=== PATIENT | male | born 1950 | race American Indian/Alaskan Native ===

== ENCOUNTER 2017-03-18 14:11 | Emergency (ER) | payer MEDICARE | END 2017-03-18 14:55 | disposition left against medical advice (07) | LOC: EDSEX → ED 14:11 | DX: Z02.89 Encounter for other administrative examinations (principal); M54.2 Cervicalgia ==

== ENCOUNTER 2017-03-19 07:28 | Emergency (ER) | payer MEDICARE ==
[2017-03-19 07:46] VITALS: TEMP 98.6
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
[2017-03-19] MEDS ORDERED: TraMADol/Apap 37.5/325 mg Tab PO STA (08:33)
--- NOTE | 2017-03-19 08:39 | CT ---
PROCEDURE: CT Cervical Spine without contrast HISTORY: Posterior neck pain COMPARISON: None available. TECHNIQUE: Axial computed tomography images were obtained of the cervical spine without the use of intravenous contrast. Coronal and sagittal reformatted images were created and reviewed. Radiation dose: Total exam DLP = 442 mGy-cm. This CT exam was performed using one or more of the following dose reduction techniques: Automated exposure control, adjustment of the mA and/or kV according to patient size, and/or use of iterative reconstruction technique. FINDINGS: VERTEBRAE: Normal cervical curvature without fracture or spondylolysis is apparent. There is advanced degenerate disease identified at C5-6 with endplate degenerative changes appearing prominent including osteophyte development anteriorly greater than posteriorly. Prominent C1-2 articular degenerate changes are also identified within a prothesis appearing intact nevertheless. DISCS/SPINAL CANAL/NEURAL FORAMINA: Minimal C2-3 disc bulge appreciated with mild degenerative this neural foraminal stenosis identified the left, none at the right. No significant central canal stenosis. At C3-4, limited disc bulge appreciate without central canal or neural foraminal stenosis encountered. Mild ossification of the posterior longitudinal ligament posterior to the C4 vertebral body indents the ventral epidural space/ventral thecal sac. At C4-5, an irregular disc osteophyte complex is seen slightly greater the right than left sides resulting in a borderline right jair canal stenosis but none at the left. No significant neural foraminal stenosis. At C5-6, there is a the large disc osteophyte complex causing [id number] right hemicanal stenosis and [id number]-[id number] bilateral neural foraminal stenosis with contribution from uncovertebral and facet arthropathy bilaterally. At C6-7 and C7-T1, there are no pertinent CT findings other than degenerative facet arthropathy. PARASPINAL SOFT TISSUES: Unremarkable. OTHER FINDINGS: None. IMPRESSION: Multilevel degenerative disc disease, facet arthropathy and variable centered at central canal and neural foraminal stenoses seen worst at C5-6 where there is a large disc osteophyte complex results [id number] right jair canal stenosis and severe bilateral neural foraminal stenosis. Normal curvature without fracture or spondylolisthesis identified.
[2017-03-19 09:42] VITALS: BP 180/88; PULSE 67; RESP 16; O2SAT 98
== END 2017-03-19 09:53 | disposition home or self-care (01) ==
LOC: ED 07:28
DX: S16.1XXA Strain of muscle, fascia and tendon at neck level, initial encounter (principal); X58.XXXA Exposure to other specified factors, initial encounter; Y93.9 Activity, unspecified; Y92.9 Unspecified place or not applicable; M48.02 Spinal stenosis, cervical region
CPT/HCPCS: 72125; 96372; 99284; J1885

== ENCOUNTER 2017-05-03 00:34 | Emergency (ER) | payer MEDICARE ==
[2017-05-03 00:45] VITALS: BP 148/95; PULSE 80; RESP 18; TEMP 97.6; O2SAT 100; BMI 21.7
--- NOTE | 2017-05-03 00:45 | ED PDOC ---
Arrival/HPI - General Historian: Patient <Fitz Anguiano - Last Filed: 05/03/17 01:25> <Josh Madison - Last Filed: 05/03/17 01:29> - General Time Seen by Provider: 05/03/17 00:42 - History of Present Illness Narrative History of Present Illness (Text): 05/03/17 00:43 66 y/o male, pmh including bone cancer/prostate cancer, allergic to penicillin, c/o rt. shoulder and rt. knee pain s/p fall and injured it about 3 weeks ago with no head or neck injury. Aching pain, aggravated by movement, no numbness or tingling, no palpitation, no rash, no night sweat, no other medical or psychological complaints. (Fitz Anguiano) Past Medical History - Provider Review Nursing Documentation Reviewed: Yes - Cardiac Hx Hypertension: Yes - Hematological/Oncological Other/Comment: pt sts he has bone and prostsate CA - Genitourinary/Gynecological Hx Prostate Cancer: Yes - Psychiatric Hx Substance Use: No - Surgical History Other/Comment: B/L knee , right thumb, right collar <Fitz Anguiano - Last Filed: 05/03/17 01:25> Family/Social History - Physician Review Nursing Documentation Reviewed: Yes Family/Social History: Unknown Family HX Smoking Status: Former Smoker Hx Alcohol Use: No Hx Substance Use: No <Fitz Anguiano - Last Filed: 05/03/17 01:25> Allergies/Home Meds <Fitz Anguiano - Last Filed: 05/03/17 01:25> <Josh Madison - Last Filed: 05/03/17 01:29> Allergies/Adverse Reactions: Allergies Penicillins Allergy (Verified 03/19/17 07:53) RASH Review of Systems - Review of Systems Constitutional: absent: Fatigue, Fevers Eyes: absent: Vision Changes ENT: absent: Hearing Changes Respiratory: absent: SOB, Cough Cardiovascular: absent: Chest Pain Gastrointestinal: absent: Abdominal Pain, Nausea, Vomiting Musculoskeletal: Arthralgias. absent: Back Pain, Neck Pain, Joint Swelling, Myalgias Skin: absent: Rash, Pruritis, Skin Lesions Neurological: absent: Headache, Dizziness Psychiatric: absent: Anxiety, Depression, Suicidal Ideation <Fitz Anguiano - Last Filed: 05/03/17 01:25> Physical Exam Pain Distress: Moderate - Systems Exam Head: Present: Atraumatic, Normocephalic Pupils: Present: PERRL Extroacular Muscles: Present: EOMI Conjunctiva: Present: Normal Mouth: Present: Moist Mucous Membranes Neck: Present: Normal Range of Motion Respiratory/Chest: Present: Clear to Auscultation, Good Air Exchange. No: Respiratory Distress, Accessory Muscle Use Cardiovascular: Present: Regular Rate and Rhythm, Normal S1, S2. No: Murmurs Abdomen: Present: Normal Bowel Sounds. No: Tenderness, Distention, Peritoneal Signs Back: Present: Normal Inspection Upper Extremity: Present: Normal Inspection, Other (Rt. shoulder: mild +ttp on the rt. anterior shoulder joint line, no rash, FROM without limitation, sensation intact, motor 5/5, +radial pulse.). No: Cyanosis, Edema Lower Extremity: Present: Normal Inspection, Other (Rt. knee: no tenderness or swelling, negative shahana and lawrence signs, FROM without limitation, sensation intact, motor 5/5. ). No: Edema Neurological: Present: GCS=15, Speech Normal, Motor Func Grossly Intact, Gait Normal, Memory Normal Skin: Present: Warm, Dry, Normal Color. No: Rashes Psychiatric: Present: Alert, Oriented x 3, Normal Insight, Normal Concentration <Fitz Anguiano - Last Filed: 05/03/17 01:25> Medical Decision Making <Fitz Anguiano - Last Filed: 05/03/17 01:25> <Josh Madison - Last Filed: 05/03/17 01:29> ED Course and Treatment: 05/03/17 00:45 -toradol/percocet -xrays. 05/03/17 01:25 -xrays show +degenerative joint changes, no fracture or dislocation -Sling given, kelsey wrap with cane -Discharge home with meloxicam, kelsey wrap, cane, follow up with your own pmd and orthopedic within 2 days, return to the ER for any new or worsening signs or symptoms. (Fitz Anguiano) - RAD Interpretation Radiology Orders: 05/03/17 00:46 KNEE W PATELLA RIGHT 3 VIEW [RAD] Stat SHOULDER RIGHT [RAD] Stat - Medication Orders Current Medication Orders: Discontinued Medications Ketorolac Tromethamine (Toradol) 30 mg IM STAT STA Stop: 05/03/17 00:47 Last Admin: 05/03/17 01:27 Dose: 30 mg Oxycodone/Acetaminophen (Percocet 5/325 Mg Tab) 1 tab PO STAT STA Stop: 05/03/17 00:47 Last Admin: 05/03/17 01:27 Dose: 1 tab - PA / POWER TECHNICIAN / Resident Statement JEOVANY has reviewed & agrees with the documentation as recorded. <Fitz Anguiano - Last Filed: 05/03/17 01:25> - PA / POWER TECHNICIAN / Resident Statement JEOVANY has reviewed & agrees with the documentation as recorded. JEOVANY has examined the patient and agrees with the treatment plan. <Josh Madison - Last Filed: 05/03/17 01:29> Disposition/Present on Arrival - Present on Arrival Any Indicators Present on Arrival: No History of DVT/PE: No History of Uncontrolled Diabetes: No Urinary Catheter: No History of Decub. Ulcer: No History Surgical Site Infection Following: None - Disposition Have Diagnosis and Disposition been Completed?: Yes Disposition Time: :26 Patient Plan: Discharge <Fitz Anguiano - Last Filed: 05/03/17 01:25> <Josh Madison - Last Filed: 05/03/17 01:29> - Disposition Diagnosis: Osteoarthritis, Joint pain Disposition: HOME/ ROUTINE Patient Problems: Current Active Problems Problem Status Onset Joint pain Acute Osteoarthritis Acute Condition: GOOD Additional Instructions: -Discharge home with meloxicam, kelsey wrap, cane, follow up with your own pmd and orthopedic within 2 days, return to the ER for any new or worsening signs or symptoms. Prescriptions: Meloxicam 15 mg PO DAILY PRN #14 tablet PRN Reason: Other Referrals: Dorene Giraldo, [Primary Care Provider] - Follow up with primary Saad Juárez III, MD [Medical Doctor] - Follow up with primary Forms: WORK NOTE
[2017-05-03] MEDS ORDERED: Oxycodone/Acetaminophen 5/325 mg Tab PO STA (00:46)
--- NOTE | 2017-05-03 09:02 | RAD ---
PROCEDURE: Radiographs of the Right Shoulder HISTORY: rt. shoulder pain s/p fall COMPARISON: No prior. FINDINGS: BONES: Normal. No fracture. JOINTS: Degenerative changes are seen in the acromioclavicular joint SOFT TISSUES: Normal. OTHER FINDINGS: None. IMPRESSION: No acute finding
--- NOTE | 2017-05-03 09:11 | RAD ---
PROCEDURE: Right Knee Radiographs. HISTORY: pain s/p fall COMPARISON: None. FINDINGS: BONES: Normal. No fracture. JOINTS: There is joint space narrowing in the lateral compartment. Meniscal calcifications are seen JOINT EFFUSION: None. OTHER FINDINGS: None. IMPRESSION: Meniscal calcifications consistent with chondrocalcinosis. Mild lateral joint space narrowing
== END 2017-05-03 02:30 | disposition home or self-care (01) ==
LOC: ED 00:34
DX: M19.011 Primary osteoarthritis, right shoulder (principal); M17.11 Unilateral primary osteoarthritis, right knee; M25.511 Pain in right shoulder; M25.561 Pain in right knee
CPT/HCPCS: 73030; 73562; 96372; 99284; J1885

== ENCOUNTER 2017-11-06 17:00 | Emergency (ER) | payer OTHER, MEDICARE ==
[2017-11-06 17:18] VITALS: BMI 22.3
[2017-11-06 17:20] VITALS: BP 161/100; RESP 19; TEMP 98.3
[2017-11-06 17:24] VITALS: PULSE 76; O2SAT 98
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
--- NOTE | 2017-11-06 20:35 | RAD ---
PROCEDURE: Cervical Spine Radiographs. HISTORY: Pain. COMPARISON: Comparison is made to the previous CT of the cervical spine dated 03/19/2017 FINDINGS: BONES: Alignment maintained. No fracture. Dens Intact. DISC SPACES: Moderate to severe degenerative changes are again seen. There is moderate narrowing of the intervertebral disc space noted at C5-C6. SOFT TISSUES: There are foci of high attenuation seen at the prevertebral soft tissue anterior to C4 and C5 may represent soft tissue calcification. OTHER FINDINGS: Large osteophyte formation seen at C4, C5 and C6. IMPRESSION: No evidence of acute fracture or subluxation. Interval worsening of degenerative changes at the mid and lower cervical spine more prominent at C5-C6 since the previous study.
--- NOTE | 2017-11-06 21:22 | RAD ---
PROCEDURE: Right Knee Radiographs. HISTORY: pain COMPARISON: Comparison is made to the previous study dated 05/03/2017 FINDINGS: BONES: Normal. No fracture. JOINTS: Moderate osteoarthritic changes. Again noted is cartilage calcification. JOINT EFFUSION: Small suprapatellar joint effusion. OTHER FINDINGS: None. IMPRESSION: Moderate osteoarthritic changes.
== END 2017-11-06 22:22 | disposition home or self-care (01) ==
LOC: ED 17:00
DX: M54.2 Cervicalgia (principal); M54.9 Dorsalgia, unspecified; V89.2XXA Person injured in unspecified motor-vehicle accident, traffic, initial encounter; I10 Essential (primary) hypertension; Z87.891 Personal history of nicotine dependence